=== PATIENT | male | born 1955 | race Caucasian/White ===

== ENCOUNTER 2016-04-04 07:58 | Emergency (ER) | payer OTHER ==
[2016-04-04 08:11] VITALS: O2SAT 94
--- NOTE | 2016-04-04 08:37 | EDPHY ---
H & P Stated Complaint: Low back pain after he fell back against bed frame this morning - Personal History Current Tetanus Diphtheria and Acellular Pertussis (TDAP): Yes - Medical/Surgical History Hx Asthma: No Hx Chronic Respiratory Disease: No Hx Diabetes: No Hx Cardiac Disease: No Hx Renal Disease: No Hx Cirrhosis: No Hx Alcoholism: No Hx HIV/AIDS: No Hx Splenectomy or Spleen Trauma: No Other PMH: Chronic back pain, back surgery x 4 (last surg in 2009) - Social History Smoking Status: Never smoked Time Seen by Provider: 04/04/16 08:19 HPI/ROS: CHIEF COMPLAINT: Acute low back pain mechanical fall HISTORY OF PRESENT ILLNESS: 60-year-old male history of chronic back pain states that approximately 6:30 a.m. this morning because he was wearing new shoes he slipped and landed on his buttock. He is complaining of acute exacerbation of his chronic low back pain. He took an Oxy IR 15 mg in drove to the emergency department. This was a purely mechanical event according to the patient. He denies: Incontinence, retention, saddle anesthesia, foot drop, lower extremity weakness, neck pain, head injury, syncopal episode. PRIMARY CARE PROVIDER: REVIEW OF SYSTEMS: A ten point review of systems was performed and is negative with the exception of the items mentioned in the HPI PAST MEDICAL & SURGICAL HISTORY: chronic low back pain with multiple surgeries lumbar region. Currently being followed by Dr. Brito SOCIAL HISTORY: denies alcohol use PHYSICAL EXAM (Prior to examination, patient consented to physical exam, hands were washed and my usual and customary physical exam procedures followed) 1) GENERAL: Well-developed, well-nourished, alert and oriented. . 2) HEAD: Normocephalic, atraumatic 3) HEENT: Pupils equal, round, reactive to light bilaterally. Sclera anicteric. 4) NECK: Full range of motion, no meningeal signs. 5) LUNGS: Clear auscultation bilaterally, no wheezes, no rhonchi, no retractions. 6) HEART: Regular rate and rhythm, no murmur, no heave, no gallop. 7) ABDOMEN: No guarding, no rebound, no focal tendernessn, 8) MUSCULOSKELETAL: Moving all extremities, no focal areas of tenderness, no obvious trauma. No peripheral edema or discoloration. 9) BACK: He is unable to complete differentiate true midline versus just lateral of midline lumbar and sacral pain. There is soft tissue swelling in this location. Surgical scars noted.. Patella, Achilles reflexes intact to bilateral strength 5/5 10) SKIN: No rash, no petechiae. DIFFERENTIAL DIAGNOSIS: In no particular order, including but not limited to, fracture, sprain/strain, cauda equina, spinal infectious etiology. MEDICAL DECISION MAKING Re-evaluation with serial examinations most recently at 9:30 a.m.. Discussed his imaging results. He is driving. He did take an OxyIr and drove to the ER. We discussed usual customary opiate precautions including no driving or operating machinery while Recommend Lower index of suspicion for cauda equina, epidural abscess, epidural hematoma, lumbar myositis, diskitis, as the patient is neurologically intact in the lower extremities, has patella and Achilles reflexes intact and equal bilaterally, has no neurologic deficits, no incontinence, no retention, no midline pain, no fluctuance, afebrile, no flulike symptoms. Pain may be secondary to muscular strain, may be secondary to discogenic etiology. At this point I do not identify definitive indication for emergent MRI, however patient may necessitate this on an outpatient basis. Patient given acute back pain precautions. Patient verbalizes understanding of discharge instructions. I believe them be competent decision-makers. All questions and concerns have been addressed by me. Ample opportunity for questions have been provided . The patient understands that this diagnosis is provisional and can never be 100% accurate. Usual and customary warnings were given concerning the clinical impression and all the patient's questions were answered. The patient was instructed to return to the emergency department should her symptoms worsen or return, or develop any new symptoms, otherwise to followup as directed in discharge instructions. (Clarita Titus) Constitutional: Initial Vital Signs Temperature (C) 36.7 C 04/04/16 08:05 Heart Rate 81 04/04/16 08:05 Respiratory Rate 16 04/04/16 08:05 Blood Pressure 145/91 H 04/04/16 08:05 O2 Sat (%) 94 04/04/16 08:05 O2 Delivery Mode Room Air Allergies/Adverse Reactions: gabapentin [From Neurontin] Allergy (Intermediate, Verified 04/04/16 08:06) Hives Home Medications: Medication Instructions Recorded Lido Patch 02/15/14 Soma QID 02/15/14 Testosterone 02/15/14 morphINE IR 15 mg (RX) TID 02/15/14 Oxycodone HCl/Acetaminophen 1 each PO Q6 PRN #15 tablet 04/04/16 [Oxycodone-Acetaminophen 10-325] Medical Decision Making - Diagnostics Imaging: Lumbar Spine, Two Views 8:26 AM Indication: Pain. Fell out of bed. Comparison: None Technique: Upright AP and lateral views. Findings: No acute compression fracture. A mild L3 compression deformity has smooth margins and is likely old. A posterior fusion construct extending from L4 to S1, consisting of dual posterior rods and bilateral transpedicular screws in L4, L5, and S1, is well seated. No perihilar hardware fracture lucency. Radiopaque devices reside in the L4-L5 and L5-S1 interbody spaces. Mild degenerative disk disease present at L2-L3 and L3-L4. Impression: 1. No acute fracture. 2. Old mild compression deformity L3. 3. Well-seated posterior fusion construct extending from L4 to S1. Dictated By: Tom Jean MD Portable pelvis Indication: Pain. Fell out of bed. Comparison: None Findings: The pelvis is anatomically aligned. No femoral neck fracture or hip dislocation. Joint spaces are well preserved. Minimal age-appropriate osteophytes rightest involves the sacroiliac joints. Moderate constipation. Impression: Negative. No acute fracture. Dictated By: Tom Jean MD Sacrum and coccyx - 3 views Indication: Pain. Fall. Comparison: None Technique: Lateral and 2 AP views. Findings: The bones are anatomically aligned. No acute fracture. Minimal productive osteophytes rightest involves the lower half of the sacroiliac joints. The sacrum and coccyx have a normal undulating contour the lateral view. No evidence of acute sacral or coccygeal fracture. Impression: Negative. No acute fracture. Dictated By: Tom Jean MD Images reviewed by myself (Clarita Titus) Other Provider: The patient was evaluated and managed by the physician events and promotions assistant. I have reviewed this chart and I agree with the findings and plan of care as documented , as indicated by my signature. I am the secondary supervising physician. ( Aicha De Dios) - Data Points Medications Given: Discontinued Medications Ibuprofen (Motrin) 600 mg PO EDNOW ONE Stop: 04/04/16 09:34 Last Admin: 04/04/16 09:33 Dose: 600 mg Departure - Departure Disposition: Home, Routine, Self-Care Clinical Impression: Acute on chronic low back pain Condition: Good Instructions: Acute Low Back Pain (ED) Additional Instructions: Seek medical attention if you develop new or worsening pain, if you develop bladder or bowel dysfunction, numbness around your perineum, foot drop, or any other symptoms that concern you. Referrals: Doc Brito MD [Medical Doctor] - 2-3 days, call for appt. Prescriptions: Oxycodone HCl/Acetaminophen [Oxycodone-Acetaminophen 10-325] 1 each PO Q6 PRN # 15 tablet PRN Reason: Pain
[2016-04-04] MEDS ORDERED: IBUPROFEN 600 MG TAB PO ONE ×2 (09:31→09:33)
[2016-04-04 09:48] VITALS: BP 142/77; PULSE 71; RESP 18; TEMP 98.8
== END 2016-04-04 09:47 | disposition home or self-care (01) ==
DX: S39.92XA Unspecified injury of lower back, initial encounter (principal); G89.29 Other chronic pain; W01.0XXA Fall on same level from slipping, tripping and stumbling without subsequent striking against object, initial encounter

== ENCOUNTER 2016-06-30 01:46 | Emergency (ER) | payer OTHER ==
--- NOTE | 2016-06-30 01:57 | CPEKG ---
Heart Rate: 86 RR Interval: 698 P-R Interval: 168 QRSD Interval: 96 QT Interval: 396 QTC Interval: 474 P [place]: 33 QRS [place]: -51 T Wave [place]: 5 EKG Severity - ABNORMAL ECG - EKG Impression: SINUS RHYTHM EKG Impression: PROBABLE LEFT ATRIAL ABNORMALITY EKG Impression: LEFT ANTERIOR FASCICULAR BLOCK Electronically Signed By: Geoff Wilson 30-Jun-2016 04:45:03
[2016-06-30 02:01] VITALS: TEMP 97.5
[2016-06-30 02:12] LABS: % IMMATURE GRANULYOCYTES 0.7 % (0.0-1.1); ABSOLUTE IMMATURE GRANULOCYTES 0.08 10^3/uL (0.00-0.10); ADD DIFF? NO; ADD MORPH? NO; ADD SCAN? NO; ATYPICAL LYMPHOCYTE FLAG 0 (0-99); FRAGMENT RBC FLAG 0 (0-99); HEMATOCRIT 48.8 % (40.0-51.0); HEMOGLOBIN 16.5 g/dL (13.7-17.5); LEFT SHIFT FLG 0 (0-99); LIPEMIA HEMOLYSIS FLAG 90 (0-99); MEAN CELL HEMOGLOBIN 30.4 pg (27.9-34.1); MEAN CELL HEMOGLOBIN CONCENTR. 33.8 g/dL (32.4-36.7); MEAN PLATELET VOLUME 9.1 fL (8.7-11.7); PLATELET CLUMPS FLAG 20 (0-99); PLATELET COUNT 250 10^3/uL (150-400); RED BLOOD CELL COUNT 5.42 10^6/uL (4.40-6.38); RED CELL DISTRIBUTION WIDTH 14.3 % (11.5-15.2)
[2016-06-30 02:40] LABS: ANION GAP 13 mEq/L (8-16); CALCIUM 9.5 mg/dL (8.5-10.4); CARBON DIOXIDE 25 mEq/l (22-31); CHLORIDE 107 mEq/L (97-110); CREATININE 1.1 mg/dL (0.7-1.3); GLOMERULAR FILTRATION RATE > 60; GLUCOSE 118 mg/dL (70-100); POTASSIUM 4.2 mEq/L (3.5-5.2); SODIUM 145 mEq/L (134-144)
[2016-06-30 02:50] LABS: TROPONIN I < 0.012 ng/mL (0-0.034)
--- NOTE | 2016-06-30 03:33 | EDPHY ---
H & P Stated Complaint: CP and tightness that began at midnight. Fell 3 days ago, rib pain Time Seen by Provider: 06/30/16 01:55 HPI/ROS: Chief Complaint: Left chest pain HPI: 61-year-old male has had several days of worsening left-sided chest pain. Patient began having pain in that site while at rest. States that hurts to take a deep breath. Sports to cough problem. Has had some chills and sweats. Cough is nonproductive. No central chest pain. Some worsening dyspnea on exertion. Denies any falls or injuries. ROS: 10 point Review of Systems is negative except as noted in the HPI. PMH: Chronic back pain Medications: MS Contin Allergies: Gabapentin Social History: No smoking, no alcohol, daily marijuana Family History: Family history of coronary artery disease, cancer and diabetes Physical Exam: Gen: Awake, Alert, No Distress HEENT: Nose: no rhinorrhea Eyes: PERRLA, EOMI Mouth: Moist mucosa Neck: Supple, no JVD Chest: nontender, decreased breath sounds at the left base with mild crackles Heart: S1, S2 normal, no murmur Abd: Soft, non-tender, no guarding Back: no CVA tenderness, no midline tenderness Ext: no edema, non-tender Skin: no rash Neuro: CN II-XII intact, Sensation grossly intact, Strength 5/5 in bilateral upper and lower extremities - Personal History Current Tetanus/Diphtheria Vaccine: Yes Current Tetanus Diphtheria and Acellular Pertussis (TDAP): Yes Tetanus Vaccine Date: 2016 - Medical/Surgical History Hx Asthma: No Hx Chronic Respiratory Disease: No Hx Diabetes: No Hx Cardiac Disease: No Hx Renal Disease: No Hx Cirrhosis: No Hx Alcoholism: No Hx HIV/AIDS: No Hx Splenectomy or Spleen Trauma: No Other PMH: Chronic back pain, back surgery x 4 (last surg in 2009). elbow surgery - Social History Smoking Status: Never smoked Constitutional: Initial Vital Signs Temperature (C) 36.4 C 06/30/16 01:59 Heart Rate 89 06/30/16 01:59 Respiratory Rate 26 H 06/30/16 01:59 Blood Pressure 147/94 H 06/30/16 01:59 O2 Sat (%) 90 L 06/30/16 01:59 O2 Delivery Mode Nasal Cannula O2 (L/minute) 2 Allergies/Adverse Reactions: gabapentin [From Neurontin] Allergy (Intermediate, Verified 06/30/16 02:01) Hives Home Medications: Medication Instructions Recorded Oxycodone HCl/Acetaminophen 1 each PO Q6 PRN #15 tablet 04/04/16 [Oxycodone-Acetaminophen 10-325] AZITHROMYCIN [Z-PACK] 250 mg PO DAILY #6 tab 06/30/16 Medical Decision Making - Diagnostics EKG Interpretation: ECG time with a rate of 86, normal intervals, left anterior fascicular block, no acute ischemic changes. Imaging Results: Chest x-ray: There is atelectasis with blunting of the heart border at the left base concerning for a left lower lobe infiltrate. No pneumothorax, no obvious rib fractures. ED Course/Re-evaluation: Patient has a leukocytosis, troponin is normal, D-dimer is normal, chest x-ray is consistent with a left lower lobe pneumonia. Will start on azithromycin. Patient will continue to take his usual pain medicines at home. Will follow up with his primary care physician in 2-3 days. If symptoms are not improving return for further evaluation. His oxygenation is 90-92% on room air. His hemodynamics are otherwise normal. Patient is not which [facility]. I believe a trial of outpatient therapy is appropriate. - Data Points Laboratory Results: Laboratory Results 06/30/16 02:00 06/30/16 02:00 06/30/16 06/30/16 06/30/16 02:00 02:00 02:00 WBC 11.43 10^3/uL H 10^3/uL (3.80-9.50) RBC 5.42 10^6/uL 10^6/uL (4.40-6.38) Hgb 16.5 g/dL g/dL (13.7-17.5) Hct 48.8 % % (40.0-51.0) MCV 90.0 fL fL (81.5-99.8) MCH 30.4 pg pg (27.9-34.1) MCHC 33.8 g/dL g/dL (32.4-36.7) RDW 14.3 % % (11.5-15.2) Plt Count 250 10^3/uL 10^3/uL (150-400) MPV 9.1 fL fL (8.7-11.7) Neut % (Auto) 70.1 % % (39.3-74.2) Lymph % (Auto) 22.9 % % (15.0-45.0) [place] % (Auto) 5.2 % % (4.5-13.0) Eos % (Auto) 0.7 % % (0.6-7.6) Baso % (Auto) 0.4 % % (0.3-1.7) Nucleat RBC Rel Count 0.0 % % (0.0-0.2) Absolute Neuts (auto) 8.01 10^3/uL H 10^3/uL (1.70-6.50) Absolute Lymphs (auto) 2.62 10^3/uL 10^3/uL (1.00-3.00) Absolute Monos (auto) 0.59 10^3/uL 10^3/uL (0.30-0.80) Absolute Eos (auto) 0.08 10^3/uL 10^3/uL (0.03-0.40) Absolute Basos (auto) 0.05 10^3/uL 10^3/uL (0.02-0.10) Absolute Nucleated RBC 0.00 10^3/uL 10^3/uL (0-0.01) Immature Gran % 0.7 % % (0.0-1.1) Immature Gran # 0.08 10^3/uL 10^3/uL (0.00-0.10) D-Dimer < 0.27 ug/mLFEU ug/mLFEU (0.00-0.50) Sodium 145 mEq/L H mEq/L (134-144) Potassium 4.2 mEq/L mEq/L (3.5-5.2) Chloride 107 mEq/L mEq/L (97-110) Carbon Dioxide 25 mEq/l mEq/l (22-31) Anion Gap 13 mEq/L mEq/L (8-16) BUN 17 mg/dL mg/dL (7-23) Creatinine 1.1 mg/dL mg/dL (0.7-1.3) Estimated GFR > 60 Glucose 118 mg/dL H mg/dL (70-100) Calcium 9.5 mg/dL mg/dL (8.5-10.4) Troponin I < 0.012 ng/mL ng/mL (0-0.034) Medications Given: Discontinued Medications Morphine Sulfate (Morphine) 4 mg IVP EDNOW ONE Stop: 06/30/16 02:38 Last Admin: 06/30/16 02:38 Dose: 4 mg Departure - Departure Disposition: Home, Routine, Self-Care Clinical Impression: Pneumonia Condition: Good Instructions: Pneumonia (ED) Additional Instructions: Continue taking her usual pain medications. Take her full course of antibiotics. Follow up with primary care physician in 2-3 days for re-evaluation. Return to the emergency department for uncontrolled pain, increasing shortness of breath, fevers, chills, or any other concerns. Referrals: [facility] [Other] - As per Instructions Prescriptions: AZITHROMYCIN [Z-PACK] 250 mg PO DAILY #6 tab
[2016-06-30] MEDS ORDERED: AZITHROMYCIN 250 MG TAB PO ONE (03:36)
[2016-06-30] MEDS ORDERED: OXYCODONE/APAP 5/325 TAB ONE (03:37)
[2016-06-30] MEDS ORDERED: OXYCODONE/APAP 5/325 TAB PO ONE (03:38)
[2016-06-30 03:51] VITALS: BP 147/89; PULSE 97; RESP 20; O2SAT 92
== END 2016-06-30 03:51 | disposition home or self-care (01) ==
LOC: EDUNIT#
DX: J18.9 Pneumonia, unspecified organism (principal)
CPT/HCPCS: 96374